=== PATIENT | male | born 1945 | race Hispanic/Latino ===

== ENCOUNTER 2019-05-24 10:54 | Day surgery (SDC) | payer OTHER ==
--- NOTE | 2019-05-24 13:05 | Anesthesia Day of Surgery ---
Anesthesia Day of Surgery - Day of Surgery Patient Examined: Yes Patient H&P Reviewed: Yes Patient is NPO: Yes
--- NOTE | 2019-05-24 13:09 | Anesthesia Consultation ---
Anesthesia Consult and Med Hx Date of service: 05/24/19 - Airway Anesthetic Teeth Evaluation: Bridges ROM Head & Neck: Adequate Mental/Hyoid Distance: Adequate Mallampati Class: Class IV Intubation Access Assessment: Possibly Difficult - Pre-Operative Health Status ASA Pre-Surgery Classification: ASA3 Proposed Anesthetic Plan: General - Pulmonary Hx Respiratory Symptoms: No (States he can climb two flights of stairs) Hx Sleep Apnea: Yes (CPAP) - Endocrine Hx Renal Disease: Yes (Stones) - Additional Comments Anesthesia Medical History Comments: 0500 Cereal and milk
[2019-05-24] MEDS ORDERED: fentaNYL 100 MCG/2 ML INJ IV PRN (13:30)
[2019-05-24] MEDS ORDERED: ONDANSETRON 4 MG/2 ML INJ IV PRN (13:30)
[2019-05-24] MEDS ORDERED: ceFAZolin/STERILE WATER 2 GM/20 ML SYRINGE IV NR (14:00)
[2019-05-24] MEDS ORDERED: LACTATED RINGERS 1,000 ML IV SCH (14:00)
[2019-05-24] MEDS ORDERED: PROPOFOL 200 MG/20 ML VIAL IV ONE (16:08)
[2019-05-24] MEDS ORDERED: LIDOCAINE PF 100 MG/5 ML (CARDIAC SYRINGE) IV ONE (16:09)
[2019-05-24] MEDS ORDERED: fentaNYL 100 MCG/2 ML INJ ONE ×2 (16:09→17:04)
--- NOTE | 2019-05-24 16:11 | Discharge Summary ---
Short Stay Discharge Plan Activity: other (no straining ) Weight Bearing Status: Full Weight Bearing Diet: low fat, low cholesterol, low salt Special Instructions: other (in fluids ) Durable Medical Equipment Needed Upon Discharge: other (j stent ) Follow up with: [facility] [Primary Care Provider] - 7 Days SUDEEP CRUMP MD [Staff Physician] - 7 Days
--- NOTE | 2019-05-24 16:13 | Post Operative Note ---
Date of procedure: 05/31/19 Pre-op diagnosis: L ureteral stone Post-op diagnosis: same Findings: coiled stent stone Procedure: cysto ureteroscopy stent Anesthesia: GETA Surgeon: SUDEEP CRUMP Estimated blood loss: none Condition: stable Disposition: PACU
[2019-05-24] MEDS ORDERED: ONDANSETRON 4 MG/2 ML INJ ONE (16:33)
[2019-05-24] MEDS ORDERED: WATER FOR IRRIG STERILE 2000 ML IR ONE (16:47)
[2019-05-24] MEDS ORDERED: IOHEXOL 300 MG/ML 50ML IV ONE (16:47)
[2019-05-24] MEDS ORDERED: PHENYLEPHRINE/NS 1,000 MCG/10 ML SYRINGE (OR USE) IV ONE (17:16)
--- NOTE | 2019-05-24 17:50 | Operative Report ---
PREOPERATIVE DIAGNOSIS: Left mid upper ureteral stone. POSTOPERATIVE DIAGNOSIS: Left mid upper ureteral stone. PROCEDURES: Cystoscopy, left ureteroscopy, left laser lithotripsy, double-J stent. SURGEON: Dr. Nava. ANESTHESIA: General. FINDINGS: This is a gentleman with left upper ureteral stone. He had a stent placed. The stent is coiled back on itself in the kidney, now presents for treatment. DESCRIPTION OF PROCEDURE: The patient was brought to the operating room and placed on the operating table. Following induction of anesthesia, placed in lithotomy position, prepped and draped in usual sterile fashion. The patient had moderate trilobar hypertrophy. The stent was withdrawn from the meatus. Under fluoroscopic guidance, it did not turn into a knot and it came down the ureter. A wire could not go through the stent because of encrustations. The stent had to be removed and a second wire was placed and two wires were then placed with a double lumen catheter. Ureteroscopy showed the stone imbedded in the wall and lasered out in the mid to upper ureter. Rest of the ureteroscopy showed moderate hydronephrosis. The patient tolerated the procedure well. A double-J coiled in the kidney and bladder, we left the string, brought to recovery in stable condition. JOB# [id number] DAVID/ANDREW
[2019-05-24 18:04] VITALS: BP 149/82
--- NOTE | 2019-05-24 18:13 | Fluoroscopy Report ---
Left retrograde pyelogram INDICATION: Kidney stone FINDINGS: 7 views obtained from C-arm exam in the cystoscopy suite show removal of the left ureteral stent and subsequent placement of guidewires and a ureteroscope with eventual stent placement. Total fluoroscopic time was 1.5 minutes Signer Name: Trace Sterling MD Signed: 05/24/2019 6:09 PM Workstation Name: [id number]
--- NOTE | 2019-05-24 21:27 | Post Anesthesia Evaluation ---
- Post Anesthesia Evaluation Patient Participated: Yes Airway Patent: Yes Stable Respiratory Function: Yes Nausea/Vomiting: No Temp > 96.8F: Yes Pain Manageable: Yes Adequeate Hydration: Yes Anesthesia Complications: No Block Receding Appropriately: Not Applicable Patient on Ventilator: No
== END 2019-05-24 18:45 | disposition home or self-care (01) ==
LOC: OR 10:54 → EDBD 10:54 → OR 18:45
PROVIDERS: ATTEND Urology
DX: N20.1 Calculus of ureter (principal); I10 Essential (primary) hypertension; G47.30 Sleep apnea, unspecified; Z98.890 Other specified postprocedural states; Z90.49 Acquired absence of other specified parts of digestive tract; Z88.8 Allergy status to other drugs, medicaments and biological substances; Z79.82 Long term (current) use of aspirin; Z79.899 Other long term (current) drug therapy; Z96.653 Presence of artificial knee joint, bilateral
CPT/HCPCS: 52356; 74420; A4217; C1758; C1769; C2617; J0690; J2001; J2370; J2405; J2704; J3010; J7120; Q9967